=== PATIENT | female | born 1990 | race Caucasian/White ===

== ENCOUNTER 2018-12-01 19:41 | Emergency (ER) | payer OTHER ==
[~2018-12-01] VITALS: Ht 167.6 cm; Wt 61.2 kg
[2018-12-01 19:56] VITALS: Ht 167.6 cm; Wt 61.2 kg
[2018-12-01 21:06] VITALS: BP 113/63
== END 2018-12-01 21:06 | disposition home or self-care (01) ==
LOC: ED 19:41
DX: N39.0 Urinary tract infection, site not specified (principal); Z88.0 Allergy status to penicillin; Z98.890 Other specified postprocedural states

== ENCOUNTER 2018-12-06 20:53 | Emergency (ER) | payer OTHER ==
[~2018-12-06] VITALS: Ht 167.6 cm; Wt 60.6 kg
[2018-12-06 21:17] VITALS: Ht 167.6 cm; Wt 60.6 kg
[2018-12-06 22:44] LABS: UA SPECIFIC GRAVITY 1.025 (1.005-1.035); microscopic required? YES; urine erythrocyte NEGATIVE (NEGATIVE)
[2018-12-07 00:24] VITALS: BP 95/56
== END 2018-12-07 00:24 | disposition left against medical advice (07) ==
LOC: ED 20:53
PROVIDERS: Emergency Medicine
DX: N83.202 Unspecified ovarian cyst, left side (principal); Z88.0 Allergy status to penicillin
CPT/HCPCS: J1885